=== PATIENT | male | born 1965 | race Caucasian/White ===

== ENCOUNTER 2019-09-23 01:52 | Emergency (ER) | payer BC, SELFPAY ==
[2019-09-23 02:00] VITALS: BP 177/121; PULSE 93; RESP 18; TEMP 36.5; O2SAT 97
--- NOTE | 2019-09-23 02:09 | ED.EPISTAXIS ---
HPI - Epistaxis General Chief complaint: Nasal Problem Stated complaint: bloody nose x 8 hours Time Seen by Provider: 09/23/19 02:09 Source: patient Mode of arrival: Family Vehicle Limitations: no limitations History of Present Illness HPI Narrative: Is a 54-year-old male comes in of bloody nose started 5:00 pm this evening. Patient has been sort of intermittent but he has been able to keep it stopped. He states that this happens every year, he works outdoors and as the weather changes he gets nosebleeds sometimes he is able to control it at. Last year he had to go to [place] and sounds like he had a rhino rocket placed. Patient states it seems to be the from the left nostril. He states seems to be little bit further back. He denies any lightheadedness, no passing-out, no chest pain or shortness of breath, no nausea or vomiting. He denies any nasal trauma, no nose picking. Patient does not take any blood thinners. He states he is supposed to take blood pressure medication but that his health insurance is complicated and he often has issues with it. Related Data Home Medications Medication Instructions Recorded Confirmed lisinopril [Zestril] 20 mg PO QDAY #0 06/04/13 Allergies Allergy/AdvReac Type Severity Reaction Status Date / Time Penicillin Allergy Unknown Uncoded 02/05/18 12:56 Review of Systems Review of Systems ROS Unobtainable: All systems reviewed & are unremarkable except as noted in HPI and below ENT Ears, Nose, Mouth, and Throat: Reports as per HPI, Denies change in voice, Reports epistaxis, Denies nasal congestion, Denies nasal discharge, Denies nasal obstruction, Denies nasal trauma, Denies neck pain, Denies post nasal drip, Denies sore throat and Reports other Cardiovascular Cardiovascular: Denies syncope and Denies lightheadedness Gastrointestinal Gastrointestinal: Denies nausea and Denies vomiting Musculoskeletal Musculoskeletal: Denies neck pain Neurologic Neurologic: Denies syncope Patient History Medical History (Updated 09/23/19 @ 03:09 by Phyllis Quiroga DO) Hypertension (Acute) Social History Smoking Status: Never smoker alcohol intake frequency: 0-2 drinks per day Substance Use Type: does not use Exam Narrative Exam Narrative: GEN: Obese, well appearing male, alert and oriented x 3, patient appears to be in mild distress. HEENT: Atraumatic, pupils are equal round reactive to light, extraocular movements are intact, right nares clear, left near has some dried blood and patient had nasal clamp in place when removed patient has active bleeding but unable to visualize the source, TMs are clear with no fluid, there is no conjunctival pallor. Throat is clear without any exudates, erythema, tonsillar enlargement or uvular deviation HEART: Regular rate and rhythm without murmur, clicks, rubs. LUNGS:Lungs clear to auscultation, no wheezes, rales, crackles, chest moves symmetrically MSCL: Non-tender, no muscle atrophy, muscles strength 5/5 upper and lower extremities, full range of motion, normal gait NEURO:CN 2-12 intact, sensation normal SKIN: no petechiae, no ecchymosis. Initial Vital Signs Initial Vital Signs: Vital Signs Temperature 97.7 F 09/23/19 02:00 Pulse Rate 93 H 09/23/19 02:00 Respiratory Rate 18 09/23/19 02:00 Blood Pressure 177/121 H 09/23/19 02:00 Pulse Oximetry 97 09/23/19 02:00 Procedures Epistaxis Control Time Out Performed: Yes Nostril: left Nose Prepped With: lidocaine (afrin and TXA) Direct Inspection: unable to visualize Clots Removed by: manually Cautery Used: none Device Inserted: nasal tampon (4.5 rhinorocket) Course Orders Ordered: Discontinued Medications Lidocaine/Sodium Bicarbonate (Buffered Lidocaine 10 Ml Syr) 10 ml INJ NOW ONE Stop: 09/23/19 02:33 Last Admin: 09/23/19 02:40 Dose: 10 ml Documented by: MMCFARL Oxymetazoline HCl (Afrin) 2 sprays NASAL NOW ONE Stop: 09/23/19 02:33 Last Admin: 09/23/19 02:40 Dose: 2 sprays Documented by: MMCFARL Silver Nitrate/Potassium Nitrate (Silver Nitrate Stick) 1 each TOP NOW ONE Stop: 09/23/19 02:34 Last Admin: 09/23/19 02:42 Dose: 1 each Documented by: MMCFARL Tranexamic Acid (Cyklokapron) 1,000 mg IV NOW ONE Stop: 09/23/19 02:33 Last Admin: 09/23/19 02:40 Dose: 1,000 mg Documented by: MMCFARL Vital Signs Vital signs: Vital Signs - 8 hr 09/23/19 02:00 09/23/19 02:50 09/23/19 03:24 Temperature 97.7 F 97.7 F Pulse Rate 93 H 93 H 82 Respiratory Rate 18 18 18 Blood Pressure 177/121 H 177/121 H Blood Pressure [Left Arm] 178/119 H Pulse Oximetry 97 97 97 MDM - Epistaxis MDM Narrative Medical decision making narrative: Patient had stopped bleeding initially with afrin and nasal clamp but then restarted, unable to locate source, 4.5cm rhinorocket placed with resolution of epistaxis. Patient offered removal and observation or to keep in place till am with instructions to remove by cutting the clear tubing first. Patient elects for the later. Given afrin and nasal clamp for home. Discharge Plan Departure Patient Disposition: Home Clinical Impression: Epistaxis Instructions: DI for Nosebleed Activity Restrictions/Additional Instructions: Follow-up with the ENT specialist provided. Follow directions as noted below. Return to emergency department if self-care directions do not work and urine able to stop the bleeding, or if you become lightheaded, began vomiting. Use medications as directed. I would recommend restarting your hypertension medication, your blood pressure is very high today and terminologist increases risk of strokes, heart attacks, heart and kidney failure. Nosebleed self-care - With the right self-care, most nosebleeds stop on their own. Here's what you should do: 1. Blow your nose. This might increase the bleeding for a moment, but that's OK. 2. Sit or stand while bending forward a little at the waist. DO NOT lie down or tilt your head back. 3. Pinch the soft area towards the bottom of your nose, below the bone (picture 1). DO NOT quality process auditor the bridge of your nose between your eyes. That will not work. DO NOT press on just 1 side, even if the bleeding is only on 1 side. That will not work either. 4. Squeeze your nose shut for at least 15 minutes. (In children, squeeze for only 5 minutes.) Use a clock to time yourself. Do not release the pressure before the time is up to check if the bleeding has stopped. If you keep checking, you will ruin your chances of getting the bleeding to stop. If you follow these steps, and your nose keeps bleeding, repeat all the steps once more. Apply pressure for a total of at least 30 minutes (or 10 minutes for children). If you are still bleeding, go to the emergency room or an urgent care clinic. What if I get repeated nosebleeds? - Frequent nosebleeds can be caused by: Breathing dry air all the time Using cold or allergy nasal sprays too much Frequent colds Snorting drugs into your nose, such as cocaine In some cases, repeat nosebleeds can be a sign that your blood does not clot like it should. If that is the case, there are often other clues. For instance, people with clotting problems bruise easily and might bleed more than you would expect after a small cut or scrape. Nosebleed treatment - If you end up seeing a doctor or nurse for your nosebleed, he or she will make sure you can breathe OK. Then he or she will try to get the bleeding to stop. To do that, he or she might have to put a device or some packing material up your nose. What can I do to keep from getting nosebleeds? - You can: Use a humidifier (a machine that makes the air less dry) in your bedroom when you sleep Keep the inside of your nose moist with a nasal saline spray or gel Not pick your nose, or at least clip your nails before you do to avoid injury Prescriptions: No Action lisinopril [Zestril] 20 MG tablet 20 mg PO QDAY Qty: 0 RF: 0 Referrals: Jean-Pierre Mohan MD [Physician] -
[2019-09-23] MEDS: OXYMETAZOLINE NASAL SPRAY 30 ML 2 SPRAYS NASAL (02:40)
[2019-09-23] MEDS: LIDO 1%/SOD BICARB 8.4% (10ML) 10 ML SYRINGE INJ (02:40)
[2019-09-23] MEDS: TRANEXAMIC ACID 1,000 MG VIAL 1000 MG IV (02:40)
[2019-09-23] MEDS: SILVER NITRATE STICK 1 EACH TOP (02:42)
[2019-09-23 02:50] VITALS: BP 177/121; PULSE 93; RESP 18; TEMP 36.5; O2SAT 97
[2019-09-23 03:24] VITALS: BP 178/119; PULSE 82; RESP 18; O2SAT 97
== END 2019-09-23 03:24 | disposition home or self-care (01) ==
PROVIDERS: Emergency Provider Emergency Medicine
DX: R04.0 Epistaxis (principal); I10 Essential (primary) hypertension
CPT/HCPCS: 30901; 96374; 99282; 99284

== ENCOUNTER → 2020-04-06 10:26 | Outpatient (CLI) | payer BC, SELFPAY ==
[2020-04-06 11:50] LABS: Add Manual Diff / Slide Review NO; Basophils Absolute Auto 0 /uL (0-100); Basophils Percent Auto 0.7 % (0-2); Eosinophils Absolute Auto 100 /uL (0-450); Eosinophils Percent Auto 2.1 % (2-4); Hematocrit 45.1 % (41-53); Hemoglobin 15.7 g/dL (13.5-17.5); Lymphocytes Absolute Auto 1500 /uL (1100-4500); Lymphocytes Percent Auto 26.9 % (25-40); Mean Corpuscular HGB Conc 34.8 % (30-36); Mean Corpuscular Hemoglobin 30.2 PG (26-34); Mean Corpuscular Volume 86.7 fL (80-100); Monocytes Absolute Auto 400 /uL (0-900); Monocytes Percent Auto 7.6 % (3-14); Neutrophils Absolute Auto 3400 /uL (1500-7000); Neutrophils Percent Auto 62.7 % (50-75); Platelet Count 204 X10^3/uL (150-400); Red Cell Distribution Width 13.3 % (11.6-14.8); White Blood Cell Count 5.4 X10^3/uL (4.5-11.0)
[2020-04-06 12:16] LABS: Creatinine Urine Random 175.3 mg/dL
[2020-04-06 12:20] LABS: Microalbumi Creatinin Ratio Ur 11.4 ug/mg CR (<30)
[2020-04-06 12:30] LABS: Alanine Aminotransferase 22 IU/L (<50); Albumin 3.9 g/dL (3.5-5.0); Albumin Globulin Ratio 1.3 (1.0-2.8); Alkaline Phosphatase 52 U/L (38-126); Aspartate Aminotransferase 29 IU/L (17-59); BUN Creatinine Ratio 18.8 (6-22); Bilirubin Total 0.6 mg/dL (0.2-1.3); Blood Urea Nitrogen 16 mg/dL (9-20); Carbon Dioxide 23 mmol/L (22-32); Chloride 107 mmol/L (98-107); Cholesterol 206 mg/dL (140-199); Estimated Glomerular Filt Rate > 60.0 mL/min (>60); Globulin 3.1 g/dL (1.7-4.1); Glucose 115 mg/dL (70-100); HDL Cholesterol 42 mg/dL (40-60); HEMOLYSIS < 15 (0-50); LDL Cholesterol Calculated 147 mg/dL (<100); Potassium 4.1 mmol/L (3.4-5.1); Sodium 138 mmol/L (137-145); Triglycerides 84 mg/dL (35-150)
[2020-04-06 12:34] LABS: Free T3, Triiodothyronine Free 3.78 pg/mL (2.77-5.27); Free T4, Direct Thyroxine 0.84 ng/dL (0.78-2.19)
[2020-04-06 12:47] LABS: Thyroid Stimulating Hormone 1.67 uIU/mL (0.47-4.68)
[2020-04-06 13:00] LABS: Prostate Specific Antigen Scrn 1.39 ng/mL (0.1-4.0)
== END ==
PROVIDERS: PCP Nurse Practitioner; Referring Provider Nurse Practitioner; Visit Provider Nurse Practitioner
DX: Z00.00 Encounter for general adult medical examination without abnormal findings (principal); I10 Essential (primary) hypertension
CPT/HCPCS: 36415; 80053; 80061; 82043; 82570; 84439; 84443; 84481; 85025; G0103

== ENCOUNTER → 2020-08-13 10:04 | Outpatient (CLI) | payer BC, SELFPAY ==
[2020-08-13 11:07] LABS: Cholesterol 192 mg/dL (140-199); Glucose 96 mg/dL (70-100); HDL Cholesterol 35 mg/dL (40-60); LDL Cholesterol Calculated 140 mg/dL (<100); Triglycerides 83 mg/dL (35-150)
== END ==
PROVIDERS: PCP Nurse Practitioner; Referring Provider Nurse Practitioner; Visit Provider Nurse Practitioner
DX: E78.00 Pure hypercholesterolemia, unspecified (principal); R73.09 Other abnormal glucose
CPT/HCPCS: 36415; 80061; 82947

== ENCOUNTER → 2020-09-24 08:59 | Outpatient (CLI) | payer BC, SELFPAY ==
[2020-09-24 09:42] LABS: COVID19 -Nasal RAPID Negative (Negative)
== END ==
PROVIDERS: PCP Nurse Practitioner; Visit Provider Nurse Practitioner
DX: Z11.59 Encounter for screening for other viral diseases (principal); R19.7 Diarrhea, unspecified
CPT/HCPCS: 87635

== ENCOUNTER 2021-10-21 21:58 | Emergency (ER) | payer OTHER, SELFPAY ==
[2021-10-21 22:09] VITALS: BP 229/119; PULSE 96; RESP 17; TEMP 36.6; O2SAT 96; BMI 39.3
--- NOTE | 2021-10-21 22:27 | ED.WOUNDLAC ---
HPI - Wound/Laceration General Chief Complaint: Wound/Laceration Stated Complaint: Needs injured finger re-checked Time Seen by Provider: 10/21/21 22:02 Source: patient and family Mode of arrival: Ambulatory History of Present Illness HPI narrative: Patient is a 56-year-old male who approximately 2 weeks ago sustained an injury to his left middle finger. Was seen at an outside facility. Did have a tuft fracture and extensive soft tissue damage. Part of this wound was closed with sutures and another part was unable to be closed. He did follow-up with orthopedics earlier this week. The stitches are still in place. He is still on antibiotics. He comes emergency department today because he thinks that the finger is more swollen than normal. No fevers. Has a follow-up with Orthopedics in 3 days from now. Related Data Previous Rx's Medication Instructions Recorded lisinopril 30 mg tablet 30 mg PO DAILY #180 tab 04/05/20 lisinopril 30 mg tablet 30 mg PO DAILY #30 tab 10/21/21 Allergies Allergy/AdvReac Type Severity Reaction Status Date / Time Penicillin Allergy Unknown Uncoded 04/05/20 14:08 Review of Systems Constitutional Comments: No fevers Musculoskeletal Comments: Swollen left middle finger Integumentary/Breasts Comments: Wounds to left middle finger Neurologic Comments: No change in neurologic status Hematologic/Lymphatic On Anticoagulants: No Patient History Medical History Eczema Hypertension (~2004) Obesity determined by physical examination Skin lesion of cheek Wears glasses Surgical History (Updated 03/02/20 @ 21:04 by Lisa Ayala) Anesthesia History of knee surgery (~1986) Family History (Updated 03/02/20 @ 21:06 by Lisa Ayala) Father History of heart disease Mother Cancer Diabetes mellitus Hypertension Brother Diabetes mellitus Hypertension Sister Hypertension Sister Hypertension Social History Smoking Status: Never smoker Smoking Status: Never smoker alcohol intake frequency: 0-2 drinks per day Substance Use Type: does not use Exam Initial Vital Signs Initial Vital Signs: Vital Signs Temperature 97.8 F 10/21/21 22:09 Pulse Rate 96 H 10/21/21 22:09 Respiratory Rate 17 10/21/21 22:09 Blood Pressure 229/119 H 10/21/21 22:09 Pulse Oximetry 96 10/21/21 22:09 Cardio Pulses: radial pulses present on the left Skin Other: Patient has wounds consistent his initial injury to the left middle finger. It does involve the pad of the finger. The stitches are still in place. There is no dehiscence. The ulnar aspect/dorsum does have granulation tissue in place. The nail is in place. It is swollen from the D IP joint distal and then also has some swelling on the proximal portion of the finger as well. Extrem Other: Swelling and skin wound to the distal left middle finger. His PIP joint and MCP joint in the rest of his fingers and hand on the left are unremarkable. Course Orders Ordered: Discontinued Medications Lisinopril (Lisinopril 10 Mg Tablet) 30 mg PO NOW ONE Stop: 10/21/21 22:35 Vital Signs Vital signs: Vital Signs - 8 hr 10/21/21 22:09 10/21/21 22:44 Temperature 97.8 F Pulse Rate 96 H 85 Respiratory Rate 17 18 Blood Pressure 229/119 H 204/108 H Pulse Oximetry 96 97 MDM - Wound/Laceration MDM Narrative Medical decision making narrative: The wound actually appears well it does appear to be a state of healing that I would expect for this type of injury. There is swelling associated with the finger however I have low suspicion for an infection. He is on antibiotics. I suspect that the swelling is related to the bandage that was on it. He thought that maybe the bandage was too tight. I was able to review the records from his prior ED visit. He has a follow-up with Orthopedics in 3 days from now. He was placed in a bulky dressing post to provide support to the tuft fracture and also protect the finger. He will continue with the antibiotics. He will keep his appointment with Orthopedics. Patient is also hypertensive. He does take lisinopril and has been out of this medication. He was given a dose here in the ER and I did refill his medicines. He will contact his primary doctor for follow-up. He is given return precautions. He expressed understanding and agreement. Discharge Plan Departure Patient Disposition: Home Clinical Impression: Injury of finger of left hand, Hypertension Instructions: Essential Hypertension Activity Restrictions/Additional Instructions: I would recommend keeping the bandage that was placed today on your finger until your follow-up appointment on Paula with the orthopedic providers. A prescription for your blood pressure medicine was transmitted to [facility]. Please start taking it tomorrow as directed. Return to the emergency department for any new or worsening symptoms Prescriptions: New lisinopril 30 mg tablet 30 mg PO DAILY Qty: 30 0RF No Action lisinopril 30 mg tablet 30 mg PO DAILY Qty: 180 3RF Rx Instructions: Take 1 tab by mouth daily for hypertension, goal <140/90 consistently Referrals: Ashely Stark ARNP [Primary Care Provider] -
[2021-10-21 22:44] VITALS: BP 204/108; PULSE 85; RESP 18; O2SAT 97
[2021-10-21 22:51] VITALS: BP 204/108; PULSE 85
[2021-10-21] MEDS: lisinopriL 10 MG TABLET 30 MG PO (22:51)
== END 2021-10-21 22:54 | disposition home or self-care (01) ==
PROVIDERS: Emergency Provider Emergency Medicine; PCP Nurse Practitioner
DX: S69.92XD Unspecified injury of left wrist, hand and finger(s), subsequent encounter (principal); I10 Essential (primary) hypertension; X58.XXXD Exposure to other specified factors, subsequent encounter
CPT/HCPCS: 99283

== ENCOUNTER 2022-03-17 17:30 | Emergency (ER) | payer SELFPAY ==
[2022-03-17 18:02] VITALS: BP 213/117; PULSE 80; RESP 16; TEMP 36.1; O2SAT 98; BMI 40.2
--- NOTE | 2022-03-17 18:11 | PC.NURSE ---
wound culture obtained, dressing applied.
--- NOTE | 2022-03-17 19:58 | ED_ITS ---
HPI - Skin/Abscess/Foreign Bdy General Chief complaint: Skin/Abscess/Foreign Body Stated complaint: Lower extremity injury right overton Time Seen by Provider: 03/17/22 19:41 Mode of arrival: Ambulatory History of Present Illness HPI narrative: 56-year-old male nonsmoker with history of hypertension presents with family in the chief complaint of a poorly healing and now foul-smelling wound on his right anterior overton. He states he suffered a laceration about 1 month ago and had been doing relatively well, on occasion draining some fluid but he accidentally ripped off the scab a few days ago and now it is draining and smells terrible. He denies any systemic findings such as dizziness, weakness or lightheadedness. He has no fever or chills. He denies nausea, vomiting or diarrhea. He has no chest pain or shortness of breath nor abdominal pain. He states that he has been having trouble with insurance and as a result has not been able to take his blood pressure for the last 1-2 weeks. Related Data Previous Rx's Medication Instructions Recorded lisinopril 30 mg tablet 30 mg PO DAILY #180 tab 04/05/20 lisinopril 30 mg tablet 30 mg PO DAILY #30 tab 10/21/21 doxycycline hyclate 100 mg tablet 100 mg PO BID #20 tab 03/17/22 lisinopril 30 mg tablet 30 mg PO DAILY #30 tab 03/17/22 Allergies Allergy/AdvReac Type Severity Reaction Status Date / Time Penicillin Allergy Unknown Uncoded 03/17/22 18:07 Review of Systems Review of Systems Narrative: GENERAL: Denies chills, fatigue, malaise, fever, sweats. HEENT: Denies sinus pain, ear pain, sore throat, difficulty swallowing, dizziness. RESPIRATORY: Denies dyspnea, cough, wheezing, hemoptysis, sputum. CARDIOVASCULAR: Denies chest pain, palpitations, orthopnea, edema, GASTROINTESTINAL: Denies nausea, vomiting, abdominal pain, diarrhea, constipation, melena. : Denies dysuria, frequency, incontinence, hematuria, urinary retention. MUSCULOSKELETAL: denies weakness, joint pain, or bony pain SKIN: See HPI NEUROLOGIC: Denies weakness, headache, numbness, change in speech, confusion, seizures, incoordination. PSYCHIATRIC: No concerning psychosocial issues. 12 point review of systems is negative except for those stated above Patient History Medical History Eczema Hypertension (~2004) Obesity determined by physical examination Skin lesion of cheek Wears glasses Surgical History Anesthesia History of knee surgery (~1986) Family History Father History of heart disease Mother Cancer Diabetes mellitus Hypertension Brother Diabetes mellitus Hypertension Sister Hypertension Sister Hypertension Social History Smoking Status: Never smoker Smoking Status: Never smoker alcohol intake frequency: 0-2 drinks per day Substance Use Type: does not use Exam Narrative Exam Narrative: GENERAL: [56] year old patient appears stated age. Well-developed patient, in no obvious distress HEAD: Atraumatic. Normocephalic. EYES: Pupils equal round and reactive. Extraocular motions intact. No scleral icterus. No injection or drainage. ENT: Nose without bleeding, purulent drainage. Throat without erythema, tonsillar hypertrophy or exudate. Airway patent. NECK: Trachea midline. Non tender CARDIOVASCULAR: Regular rate and rhythm without murmurs, gallops, or rubs. RESPIRATORY: Clear to auscultation. Breath sounds equal bilaterally. No wheezes, rales, or rhonchi. GASTROINTESTINAL: Abdomen soft, non-tender, nondistended. EXTREMITIES: poorly healing wound in right anterior mid overton, foul smelling, minimal drainage has been cultured. Minimal surrounding erythema, induration, fluctuance or lymphangitis. BACK: Nontender without deformity or crepitance. No flank tenderness. NEURO: AOx3. SKIN: No rash or erythema of visible areas Initial Vital Signs Initial Vital Signs: Vital Signs Temperature 97.0 F L 03/17/22 18:02 Pulse Rate 80 03/17/22 18:02 Respiratory Rate 16 03/17/22 18:02 Blood Pressure 213/117 H 03/17/22 18:02 Pulse Oximetry 98 03/17/22 18:02 Course Orders Ordered: ED Orders 03/17/22 18:15 Wound Culture and Gram Stain Stat Discontinued Medications Doxycycline Hyclate (Doxycycline Hyclate 100 Mg Tablet) 100 mg PO NOW ONE Stop: 03/17/22 20:05 Lisinopril (Lisinopril 20 Mg Tablet) 20 mg PO NOW ONE Stop: 03/17/22 20:05 Vital Signs Vital signs: Vital Signs - 8 hr 03/17/22 18:02 Temperature 97.0 F L Pulse Rate 80 Respiratory Rate 16 Blood Pressure 213/117 H Pulse Oximetry 98 MDM - Skin/Abscess/Foreign Bdy MDM Narrative Medical decision making narrative: Patient has very reassuring history and physical exam without signs of HTN emergency such as headache, blurred vision, chest pain, abdominal pain. Poorly healing wound without signs of sepsis or abscess. No indication for admission or further workup. Discharge Plan Departure Patient Disposition: Home Clinical Impression: Wound infection Hypertension Qualifiers: Hypertension type: primary hypertension Qualified Code(s): I10 - Essential (primary) hypertension Instructions: DI for Wound Infection Activity Restrictions/Additional Instructions: *You have been diagnosed with [poorly healing wound infection and elevated blood pressure *What to do: *Please continue to take your regular medications as directed. [x ] New medication prescriptions sent to your pharmacy: [[facility] in [place] ] [ ] New medication written as a paper prescription [ ] No new medications given *Please follow up with your primary care provider in 2-3 days, call for an appointment. Let them know you were seen in the Emergency Department and that we ask that you be seen in follow up. We will electronically transmit a record of today's note if your PCP is in our system * as we discussed I have sent a referral to the [facility] on your behalf *Results of the wound culture will take a few days to come back, if the results would suggest that you need a different or additional antibiotic we will call you *If you do not have a primary care provider please contact the [facility] Resource line at [phone]. They will ask some questions about your medical history and help get you set up with a doctor in the community. *Return to Emergency Department if you should have any new, worsening or concerning symptoms, such as [fever greater than 101 F, shaking chills, worsening pain, persistent vomiting or other bothersome symptoms] Prescriptions: New doxycycline hyclate 100 mg tablet 100 mg PO BID Qty: 20 0RF lisinopril 30 mg tablet 30 mg PO DAILY Qty: 30 0RF No Action lisinopril 30 mg tablet 30 mg PO DAILY Qty: 180 3RF Rx Instructions: Take 1 tab by mouth daily for hypertension, goal <140/90 consistently lisinopril 30 mg tablet 30 mg PO DAILY Qty: 30 0RF Referrals: Ashely Stark ARNP [Primary Care Provider] - Ronnie Merino MD [Physician] -
[2022-03-17] MEDS: DOXYCYCLINE HYCLATE 100 MG TABLET PO (20:13)
[2022-03-17] MEDS: lisinopriL 20 MG TABLET PO (20:13)
[2022-03-17 20:17] VITALS: BP 202/117; PULSE 71; RESP 18; O2SAT 95
== END 2022-03-17 20:22 | disposition home or self-care (01) ==
PROVIDERS: Emergency Provider Emergency Medicine; PCP Nurse Practitioner
DX: T81.49XA Infection following a procedure, other surgical site, initial encounter (principal); I10 Essential (primary) hypertension
CPT/HCPCS: 87070; 87075; 87077; 87147; 87186; 87205; 99283